=== PATIENT | male | born 1990 | race Caucasian/White ===

== ENCOUNTER 2024-06-07 12:04 | Emergency (ER) | payer OTHER ==
[~2024-06-07] VITALS: Ht 167.6 cm; Wt 72.2 kg
[~2024-06-07 12:04] MED LIST: NAPROXEN500 MG PO
[2024-06-07 12:36] LABS: BASOPHILS 0.3 % (0-2); EOSINOPHILS 2.3 % (0-6); HEMOGLOBIN 17.1 g/dL (12.0-18.0); LYMPHOCYTES 12.2 % (24-44); MCH 30.4 (27-36); MCHC 34.9 g/dl (30-36); MCV 87.2 fl (81-99); MONOCYTES 5.5 % (0-12); NEUTROPHILS 79.7 % (39-80); PLATELET COUNT 262 K/uL (140-440); RBC 5.62 M/ul (4.3-5.7); RDW 13.1 (10.5-15.0)
[2024-06-07 12:43] LABS: INR 0.91 (0.80-1.30); PROTIME 12.2 Sec (11.2-14.2)
[2024-06-07 12:48] LABS: ALBUMIN 4.2 g/dL (3.4-5.0); ALBUMIN/GLOBULIN RATIO 1.45 (1.1-2.4); ANION GAP 11.1 (7-21); BILIRUBIN, TOTAL 0.6 mg/dL (0.2-1.0); BUN/CREATININE RATIO 16.66 (6.0-28.6); CALCIUM 9.4 mg/dL (8.5-10.1); CREATININE, SERUM 0.96 mg/dL (0.70-1.30); MAGNESIUM 1.8 mg/dL (1.8-2.4); POTASSIUM 4.1 mmol/L (3.5-5.1); PROTEIN, TOTAL 7.1 g/dL (6.4-8.2)
[2024-06-07 14:03] LABS: BILIRUBIN, URINE NEGATIVE (negative); BLOOD/HGB, URINE NEGATIVE (Negative); KETONE, URINE NEGATIVE (Negative); LEUK ESTERASE, URINE NEGATIVE (negative); NITRITE, URINE NEGATIVE (negative); PH, URINE 8.5 (5-7)
[2024-06-07] MEDS ORDERED: FAMOTIDINE 20 MG/ 2 ML VIAL IV ONE (14:45)
[2024-06-07 18:23] VITALS: BP 143/81
== END 2024-06-07 18:39 | disposition home or self-care (01) ==
LOC: ED 12:04
PROVIDERS: Emergency Medicine
DX: R10.84 Generalized abdominal pain (principal); G89.29 Other chronic pain; Z87.891 Personal history of nicotine dependence
CPT/HCPCS: 36415; 74177; 80053; 81003; 83690; 83735; 85025; 85610; 99284-25; Q9967